=== PATIENT | male | born 1980 | race African-American/Black ===

== ENCOUNTER 2017-11-07 22:01 | Emergency (ER) | payer MEDICAID ==
[~2017-11-07] VITALS: Ht 190.5 cm; Wt 82.0 kg
[2017-11-08 06:30] VITALS: BP 121/69
[2017-11-08] MEDS ORDERED: BACITRACIN ZINC OINT UDPKT TOP ONE (06:45)
== END 2017-11-08 06:45 | disposition home or self-care (01) ==
LOC: ER 22:01
DX: S61.213A Laceration without foreign body of left middle finger without damage to nail, initial encounter (principal); J45.909 Unspecified asthma, uncomplicated; F17.200 Nicotine dependence, unspecified, uncomplicated; F12.10 Cannabis abuse, uncomplicated; Z91.09 Other allergy status, other than to drugs and biological substances; W26.0XXA Contact with knife, initial encounter; Y93.89 Activity, other specified; Y92.89 Other specified places as the place of occurrence of the external cause; Y99.8 Other external cause status
CPT/HCPCS: 99283; Z7610

== ENCOUNTER 2019-12-07 17:27 | Emergency (ER) | payer MEDICAID, OTHER ==
[~2019-12-07] VITALS: Ht 190.5 cm; Wt 95.0 kg
[2019-12-07 17:32] VITALS: BP 158/98
== END 2019-12-07 20:30 | disposition left against medical advice (07) ==
LOC: ER 17:27
DX: Z53.21 Procedure and treatment not carried out due to patient leaving prior to being seen by health care provider (principal)

== ENCOUNTER 2019-12-09 14:09 | Emergency (ER) | payer SELFPAY ==
[~2019-12-09] VITALS: Ht 190.5 cm; Wt 78.0 kg
[2019-12-09 15:20] LABS: CHLORIDE 98 mEq/L (98-107)
[2019-12-09 15:23] LABS: BASOPHILS % 0.5 % (0.0-2.0); EOSINOPHILS % 0.5 % (0.0-5.0); HEMATOCRIT. 42.5 % (42.0-52.0); HEMOGLOBIN. 14.7 g/dL (14.0-18.0); LYMPHOCYTES % 16.5 % (20.0-50.0); MEAN CORPUSCULAR HEMOGLOBIN 33.8 pg (28.0-32.0); MEAN CORPUSCULAR VOLUME 98.1 fL (80.0-94.0); MEAN PLATELET VOLUME 9.8 fl (7.4-10.4); MONOCYTES % 9.7 % (2.0-8.0); NEUTROPHILS % 72.8 % (40.0-76.0); PLATELET 259 x1000/uL (130-400); RED BLOOD CELL COUNT 4.33 mill/uL (4.7-6.1); RED CELL DISTRIBUTION WIDTH 12.7 % (11.6-14.6)
[2019-12-09 15:25] LABS: ETHANOL BLOOD < 10 mg/dL
[2019-12-09] MEDS ORDERED: LORAZEPAM 2MG/ML CPJ IM STA (16:12)
[2019-12-09] MEDS ORDERED: OLANZAPINE 10 MG/VIAL IM ONE (16:15)
[2019-12-09 16:41] LABS: CLARITY URINE CLOUDY (CLEAR); COLOR URINE DARK YELLOW (YELLOW); KETONES URINE TRACE (NEGATIVE); LEUKOCYTE ESTERASE URINE 1+ (NEGATIVE); NITRITE URINE NEGATIVE (NEGATIVE); OCCULT BLOOD URINE 3+ (NEGATIVE); PROTEIN URINE 2+ (NEGATIVE); SPECIFIC GRAVITY URINE 1.031 (1.005-1.030)
[2019-12-09 17:00] LABS: *AMPHETAMINES SCREEN URINE PRESUMTIVE POSITIVE (NEGATIVE); *BARBITURATES SCREEN URINE NEGATIVE (NEGATIVE); *BENZODIAZEPINES SCREEN URINE NEGATIVE (NEGATIVE); *COCAINE SCREEN URINE NEGATIVE (NEGATIVE); METHADONE URINE SCREEN NEGATIVE (NEGATIVE); OPIATES URINE SCREEN NEGATIVE (NEGATIVE)
[2019-12-09 17:01] LABS: CANNABINOID URINE SCREEN PRESUMTIVE POSITIVE (NEGATIVE); PHENCYCLIDINE URINE SCREEN PRESUMTIVE POSITIVE (NEGATIVE)
[2019-12-10 03:50] VITALS: BP 123/80
== END 2019-12-10 03:51 | disposition home or self-care (01) ==
LOC: ER 14:09
DX: R45.1 Restlessness and agitation (principal); F16.10 Hallucinogen abuse, uncomplicated; J45.909 Unspecified asthma, uncomplicated; Z91.048 Other nonmedicinal substance allergy status
CPT/HCPCS: 36415; 80053; 80305; 80320; 81003; 85025; 96372; 99285; J2060; J3490; G0480